=== PATIENT | male | born 1975 | race Caucasian/White ===

== ENCOUNTER 2018-05-17 19:00 | Emergency (ER) | payer MEDICAID ==
[~2018-05-17] VITALS: Ht 165.1 cm; Wt 81.4 kg
[2018-05-17] MEDS ORDERED: ONDANSETRON HCL 4 MG/2 ML VIAL IVP ONE (19:45)
[2018-05-17] MEDS ORDERED: HYDROmorphone 2 MG/ML SYRINGE IVP ONE (19:45)
[2018-05-17] MEDS ORDERED: HydrALAZINE HCL 20 MG/ML VIAL IVP ONE (19:45)
[2018-05-17] MEDS ORDERED: 0.9% SODIUM CHLORIDE 10 ML SYRINGE IVP PRN (19:45)
[2018-05-17 20:23] LABS: BASOPHILS % (AUTO) 0.4 % (0.0-2.0); EOSINOPHILS % (AUTO) 0.1 % (1.0-6.0); HEMATOCRIT 49.7 % (41-53); HEMOGLOBIN 17.4 g/dL (13.5-17.5); LYMPHOCYTES # (AUTO) 1.4 K/uL (1.0-4.8); LYMPHOCYTES % (AUTO) 10.5 % (22.0-44.0); MEAN CORPUSCULAR HEMOGLOBIN 30.3 pg (26.0-34.0); MEAN CORPUSCULAR HGB CONC 34.9 G/dL (31.0-37.0); MEAN CORPUSCULAR VOLUME 87 fL (80-100); MONOCYTES # (AUTO) 0.7 K/uL (0.1-1.0); MONOCYTES % (AUTO) 5.2 % (2.0-9.0); NEUTROPHILS # (AUTO) 11.1 K/uL (1.8-7.7); NEUTROPHILS % (AUTO) 83.8 % (40.0-70.0); PLATELET COUNT (AUTO) 328 K/uL (150-450); RED BLOOD CELL COUNT(AUTO) 5.73 MIL/uL (4.50-5.90); RED CELL DISTRIBUTION WIDTH 13.6 % (11.5-14.5)
[2018-05-17 20:34] LABS: ANION GAP 14 mmol/L (8-16); CALCIUM, TOTAL 9.6 mg/dL (8.8-10.5); CARBON DIOXIDE 27 mmol/L (22-29); CHLORIDE 100 mmol/L (98-107); CREATININE 0.93 mg/dL (0.60-1.30); GLOMERULAR FILTR. RATE CALC > 60 mL/min (>60); GLUCOSE,RANDOM 116 mg/dL (70-110); POTASSIUM 3.5 mmol/L (3.5-5.1); PROTHROMBIN TIME 10.2 SEC (9.4-11.6); SODIUM SERUM 141 mmol/L (136-145); UREA NITROGEN, BLOOD 13 mg/dL (7-18)
[2018-05-17 20:42] LABS: B-TYPE NATRIURETIC PEPTIDE 5 pg/mL (0-100)
[2018-05-17 20:45] LABS: LACTIC ACID 2.4 mmol/L (0.4-2.0)
[2018-05-17 21:00] LABS: ALANINE AMINOTRANSFERASE 39 U/L (12-78); ALBUMIN 4.2 g/dL (3.4-5.0); ALKALINE PHOSPHATASE 104 U/L (46-116); ASPARTATE AMINOTRANSFERASE 28 U/L (15-37); BILIRUBIN,TOTAL 0.7 mg/dL (0.1-1.0); CREATINE KINASE, TOTAL ONLY 113 U/L (39-308); TOTAL PROTEIN, SERUM 8.9 g/dL (6.4-8.2)
[2018-05-17] MEDS ORDERED: ASPIRIN 325 MG TABLET PO ONE (21:30)
[2018-05-17] MEDS ORDERED: GADOBUTROL 1 MMOL/ML 10 ML VIAL IVP ONE (21:40)
[2018-05-17 23:18] LABS: APPEARANCE,URINE CLEAR (CLEAR); BILIRUBIN,URINE NEGATIVE (NEGATIVE); GLUCOSE, URINE (UA) NEGATIVE (NEGATIVE); KETONES,URINE 15 mg/dL (NEGATIVE); LEUKOCYTE ESTERASE ,URINE NEGATIVE (NEGATIVE); NITRATE,URINE NEGATIVE (NEGATIVE); OCCULT BLOOD,URINE SMALL (NEGATIVE); PH,URINE 6.5 (5.0-8.0); PROTEIN,URINE POS 1+ (NEGATIVE)
[2018-05-17 23:28] LABS: BACTERIA,URINE None Seen /HPF (None Seen); RBC,URINE 0-2 /HPF (0-2); SQUAMOUS EPITHELIAL CELL,UR Few /LPF (None Seen); WBC,URINE 0-2 /HPF (0-5)
[2018-05-18 02:31] VITALS: BP 149/101
== END 2018-05-18 02:32 | disposition short-term general hospital (02) ==
LOC: EMS 19:02
DX: I63.9 Cerebral infarction, unspecified (principal); G93.9 Disorder of brain, unspecified; G43.A1 Cyclical vomiting, in migraine, intractable; I10 Essential (primary) hypertension; G91.9 Hydrocephalus, unspecified
CPT/HCPCS: 36415; 70450; 70553; 71045; 74176; 80053; 81001; 82550; 83605; 83880; 84484; 85025; 85610; 85730; 87040; 93005; 96374; 96375; 99291; A9585; J0360; J1170; J2405

== ENCOUNTER 2021-07-16 19:25 | Emergency (ER) | payer MEDICAID ==
[~2021-07-16] VITALS: Ht 162.6 cm; Wt 65.9 kg
[2021-07-16 23:14] VITALS: BP 147/100
== END 2021-07-16 23:18 | disposition home or self-care (01) ==
LOC: EMS 19:28
DX: M25.561 Pain in right knee (principal)
CPT/HCPCS: 93971; 99284; 73562-TC; Z7502